=== PATIENT | male | born 1980 | race Caucasian/White ===

== ENCOUNTER 2019-08-31 17:23 | Emergency (ER) | payer SELFPAY ==
[2019-08-31 17:32] VITALS: BP 190/134; PULSE 86; RESP 18; TEMP 36.4; O2SAT 99; BMI 38.9
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
[2019-08-31 17:52] VITALS: BP 185/115; PULSE 81; RESP 17; O2SAT 98
== END 2019-08-31 17:52 | disposition home or self-care (01) ==
PROVIDERS: Emergency Provider Nurse Practitioner Family
DX: I83.91 Asymptomatic varicose veins of right lower extremity (principal); F17.210 Nicotine dependence, cigarettes, uncomplicated
CPT/HCPCS: 12345; 99281; 99282